=== PATIENT | female | born 1980 | race Two or more races ===

== ENCOUNTER 2018-01-30 22:06 | Emergency (ER) | payer BC ==
[~2018-01-30] VITALS: Ht 162.6 cm; Wt 93.9 kg
[~2018-01-30 22:06] MED LIST: pre natal vit PO
[2018-01-31 00:20] LABS: Basophils # (auto) 0.1 uL; Basophils % (auto) 0.7 % (0.0-2.0); Eosinophils # (auto) 0.1 uL; Eosinophils % (auto) 0.9 % (0.0-7.0); Hematocrit 40.8 % (36.0-46.0); Hemoglobin 13.6 g/dL (12.2-16.2); Lymphocytes # (auto) 2.7 uL; Lymphocytes % (auto) 25.2 % (10.0-50.0); Mean Corpuscular Hemoglobin 29.5 pg (28.0-32.0); Mean Corpuscular Hgb Conc. 33.5 g/dL (32.0-36.0); Monocytes # (auto) 0.8 uL; Monocytes % (auto) 7.2 % (0.0-12.0); Nucleated Red Blood Cells % 0.1 %; Platelet Count (auto) 260 10^3/uL (140-450); Red Blood Cells 4.63 10^6/uL (4.0-5.20); White Blood Cell 10.6 10^3/uL (4.4-10.8)
[2018-01-31 00:34] LABS: Alanine Aminotransferase 116 U/L (13-56); Albumin 3.2 g/dL (3.4-5.0); Anion Gap 9 (5-15); Aspartate Aminotransferase 51 U/L (15-37); BUN/Creatinine Ratio 21.4; Blood Urea Nitrogen 15 mg/dL (7-18); Calcium 8.6 mg/dL (8.5-10.1); Carbon Dioxide 25 mmol/L (21-32); Chloride 104 mmol/L (98-107); GFR African American 119 mL/min; GFR Non-African American 99 mL/min; Glucose 250 mg/dL (74-106); Potassium 3.9 mmol/L (3.5-5.1); Sodium 138 mmol/L (136-145)
[2018-01-31 00:38] LABS: Alkaline Phosphatase 85 U/L (45-117); Bilirubin, Total 0.8 mg/dL (0.2-1.0); Total Protein 7.2 g/dL (6.4-8.2)
[2018-01-31] MEDS ORDERED: LABETALOL HCL 5 MG/ML ML 20ML VIAL IV ONE ×2 (00:45→03:15)
[2018-01-31 01:48] LABS: Urine Bacteria MANY /hpf (None Seen); Urine Blood Negative /uL (Negative); Urine Mucus FEW (None Seen); Urine Specific Gravity 1.032 (1.001-1.035); Urine WBC 7 /hpf (0 - 5)
[2018-01-31] MEDS ORDERED: cefTRIAXone 1GM/10ml IVPUSH 10 ML IV ONE (03:00)
[2018-01-31 03:29] VITALS: BP 133/73
[2018-01-31] MEDS ORDERED: ACETAMINOPHEN 500 MG TAB PO ONE (04:15)
== END 2018-01-31 04:30 | disposition home or self-care (01) ==
LOC: ER 22:06
DX: I10 Essential (primary) hypertension (principal); N39.0 Urinary tract infection, site not specified; Z88.6 Allergy status to analgesic agent
CPT/HCPCS: 36415; 71045; 80053; 81001; 82962; 84484; 85025; 93005; 96374; 96375; 99285; J0696

== ENCOUNTER 2018-05-22 06:27 | Emergency (ER) | payer BC ==
[~2018-05-22] VITALS: Ht 162.6 cm; Wt 94.3 kg
[2018-05-22] MEDS ORDERED: cloNIDine HCL 0.1 MG TAB PO ONE (06:45)
[2018-05-22 07:52] LABS: Basophils # (auto) 0.1 uL; Basophils % (auto) 0.9 % (0.0-2.0); Eosinophils # (auto) 0.2 uL; Eosinophils % (auto) 2.6 % (0.0-7.0); Hematocrit 42.3 % (36.0-46.0); Hemoglobin 14.2 g/dL (12.2-16.2); Lymphocytes # (auto) 1.4 uL; Lymphocytes % (auto) 16.1 % (10.0-50.0); Mean Corpuscular Hemoglobin 29.5 pg (28.0-32.0); Mean Corpuscular Hgb Conc. 33.5 g/dL (32.0-36.0); Mean Corpuscular Volume 88.1 fL (80.0-100.0); Monocytes # (auto) 0.4 uL; Neutrophils # (auto) 6.7 uL; Neutrophils % (auto) 75.4 % (37.0-80.0); Platelet Count (auto) 272 10^3/uL (140-450); Red Blood Cells 4.81 10^6/uL (4.0-5.20); Red Cell Distribution Width 12.9 % (11.8-14.3); White Blood Cell 8.9 10^3/uL (4.4-10.8)
[2018-05-22 07:59] LABS: Urine Bacteria NONE SEEN /hpf (None Seen); Urine Blood Negative /uL (Negative); Urine Specific Gravity 1.007 (1.001-1.035); Urine WBC <1 /hpf (0 - 5)
[2018-05-22] MEDS ORDERED: CALAMINE TOPical LOTION180 ML TOP ONE (08:00)
[2018-05-22] MEDS ORDERED: diphenhdrAMINE HCL 50 MG/1 ML VL IM ONE (08:00)
[2018-05-22 08:03] LABS: Albumin 3.5 g/dL (3.4-5.0); BUN/Creatinine Ratio 11.3; Calcium 8.7 mg/dL (8.5-10.1); Potassium 3.9 mmol/L (3.5-5.1)
[2018-05-22 08:06] LABS: Bilirubin, Total 1.2 mg/dL (0.2-1.0); Total Protein 7.4 g/dL (6.4-8.2)
[2018-05-22 10:24] VITALS: BP 133/72
== END 2018-05-22 12:00 | disposition home or self-care (01) ==
LOC: ER 06:27
DX: L30.9 Dermatitis, unspecified (principal); L50.9 Urticaria, unspecified; I10 Essential (primary) hypertension; E11.9 Type 2 diabetes mellitus without complications; Z88.6 Allergy status to analgesic agent
CPT/HCPCS: 36415; 80053; 81001; 81025; 83880; 85025; 96372; 99283; J1200

== ENCOUNTER 2019-12-06 12:02 | Emergency (ER) | payer BC ==
[~2019-12-06] VITALS: Ht 162.6 cm; Wt 88.5 kg
[2019-12-06 13:20] LABS: Basophils # (auto) 0.1 10 ^3/uL (0-0.2); Basophils % (auto) 0.7 % (0.0-2.0); Eosinophils # (auto) 0.1 10 ^3/uL (0-0.8); Eosinophils % (auto) 0.8 % (0.0-7.0); Hematocrit 42.5 % (36.0-46.0); Hemoglobin 14.3 g/dL (12.2-16.2); Lymphocytes # (auto) 1.7 10 ^3/uL (0.4-5.4); Lymphocytes % (auto) 17.8 % (10.0-50.0); Mean Corpuscular Hemoglobin 29.5 pg (28.0-32.0); Mean Corpuscular Hgb Conc. 33.6 g/dL (32.0-36.0); Mean Corpuscular Volume 87.7 fL (80.0-100.0); Monocytes # (auto) 0.6 10 ^3/uL (0-1.3); Monocytes % (auto) 5.7 % (0.0-12.0); Neutrophils # (auto) 7.2 10 ^3/uL (1.6-8.6); Nucleated Red Blood Cells % 0.1 %; Platelet Count (auto) 318 10^3/uL (140-450); Red Blood Cells 4.85 10^6/uL (4.0-5.20); Red Cell Distribution Width 13.5 % (11.8-14.3); White Blood Cell 9.6 10^3/uL (4.4-10.8)
[2019-12-06 13:34] LABS: INR 0.99 (0.9-1.15); Partial Thromboplastin Time 24.8 sec (23.64-32.05)
[2019-12-06 13:38] LABS: Albumin 3.5 g/dL (3.4-5.0); Anion Gap 6 (5-15); Blood Urea Nitrogen 9 mg/dL (7-18); Calcium 8.9 mg/dL (8.5-10.1); Carbon Dioxide 28 mmol/L (21-32); Chloride 103 mmol/L (98-107); Glucose 160 mg/dL (74-106); Potassium 3.7 mmol/L (3.5-5.1); Sodium 137 mmol/L (136-145)
[2019-12-06 13:45] LABS: Alanine Aminotransferase 54 U/L (13-56); Alkaline Phosphatase 87 U/L (45-117); Aspartate Aminotransferase 24 U/L (15-37); BUN/Creatinine Ratio 14.5; GFR African American 136 mL/min; GFR Non-African American 113 mL/min; Total Protein 7.8 g/dL (6.4-8.2)
[2019-12-06 14:43] LABS: Urine Bacteria NONE SEEN /hpf (None Seen); Urine Blood 1+ /uL (Negative); Urine Mucus FEW (None Seen); Urine Specific Gravity 1.016 (1.001-1.035); Urine WBC 3 /hpf (0 - 5)
[2019-12-06 17:29] VITALS: BP 150/70
[2019-12-06] MEDS ORDERED: HYDROcodone-ACET 5/325MG TAB PO ONE (18:00)
== END 2019-12-06 18:12 | disposition home or self-care (01) ==
LOC: ER 12:02
DX: R07.89 Other chest pain (principal); I10 Essential (primary) hypertension; E11.9 Type 2 diabetes mellitus without complications; Z88.5 Allergy status to narcotic agent
CPT/HCPCS: 36415; 71045; 80053; 81001; 84443; 84484; 85025; 85610; 85730; 93005

== ENCOUNTER 2022-01-27 13:25 | Emergency (ER) | payer BC ==
[~2022-01-27] VITALS: Ht 162.6 cm; Wt 90.7 kg
[2022-01-27 14:26] LABS: Basophils # (auto) 0.1 10 ^3/uL (0-0.2); Basophils % (auto) 0.6 % (0.0-2.0); Eosinophils # (auto) 0.1 10 ^3/uL (0-0.8); Eosinophils % (auto) 0.9 % (0.0-7.0); Hematocrit 43.5 % (36.0-46.0); Hemoglobin 14.1 g/dL (12.2-16.2); Lymphocytes # (auto) 1.8 10 ^3/uL (0.4-5.4); Lymphocytes % (auto) 21.9 % (10.0-50.0); Mean Corpuscular Hemoglobin 28.4 pg (28.0-32.0); Mean Corpuscular Hgb Conc. 32.4 g/dL (32.0-36.0); Mean Corpuscular Volume 87.6 fL (80.0-100.0); Monocytes # (auto) 0.5 10 ^3/uL (0-1.3); Neutrophils # (auto) 5.8 10 ^3/uL (1.6-8.6); Neutrophils % (auto) 70.6 % (37.0-80.0); Red Blood Cells 4.96 10^6/uL (4.0-5.20); Red Cell Distribution Width 13.3 % (11.8-14.3); White Blood Cell 8.2 10^3/uL (4.4-10.8)
[2022-01-27 14:47] LABS: Albumin 3.5 g/dL (3.4-5.0); BUN/Creatinine Ratio 11.4; Calcium 9.1 mg/dL (8.5-10.1)
[2022-01-27 15:00] LABS: Total Protein 7.3 g/dL (6.4-8.2)
[2022-01-27] MEDS ORDERED: LABETALOL HCL 5 MG/ML 4ML SYRINGE IV ONE (18:45)
[2022-01-27 22:00] VITALS: BP 164/87
== END 2022-01-27 22:09 | disposition home or self-care (01) ==
LOC: ER 13:25
DX: R00.2 Palpitations (principal); R10.2 Pelvic and perineal pain; E11.9 Type 2 diabetes mellitus without complications; I10 Essential (primary) hypertension
CPT/HCPCS: 36415; 80053; 83735; 84484; 84702; 85025; 93005; 96374; 99285; J3490